=== PATIENT | male | born 1975 | race Caucasian/White ===

== ENCOUNTER 2024-01-31 15:22 | Emergency (ER) | payer BC ==
[~2024-01-31] VITALS: Ht 177.8 cm; Wt 68.0 kg
[2024-01-31 15:36] VITALS: O2SAT 99
[2024-01-31] MEDS ORDERED: CEFU500T66 PO (15:58)
--- NOTE | 2024-01-31 16:03 | NUR ---
Patient discharged to home in stable condition. Written and verbal after care instructions given. Patient verbalizes understanding of instructions. Stressed follow up or return to ER for worsening s/s.
== END 2024-01-31 16:03 | disposition home or self-care (01) ==
LOC: ER 15:26
DX: S61.230A Puncture wound without foreign body of right index finger without damage to nail, initial encounter (principal); Z79.899 Other long term (current) drug therapy; Z88.0 Allergy status to penicillin; Z88.1 Allergy status to other antibiotic agents; W55.01XA Bitten by cat, initial encounter; Y93.89 Activity, other specified; Y92.89 Other specified places as the place of occurrence of the external cause; Y99.8 Other external cause status
CPT/HCPCS: A4606; A4663